=== PATIENT | female | born 1950 | race Caucasian/White ===

== ENCOUNTER 2016-06-21 11:52 | Emergency (ER) | payer OTHER ==
--- NOTE | 2016-06-21 13:48 | UC ---
Upper Extremity HPI - HPI Summary HPI Summary: complaint of right arm pain in forearm that started approx 2 weeks ago after falling up 1 step onto her forearm pain is aching and not improving worse with lifting or pulling feels like there is a pinching in her arm difficult sleep due to pain not taking any medication for pain at this time - History of Current Complaint Chief Complaint: UCUpperExtremity Stated Complaint: ARM INJURY Time Seen by Provider: 06/21/16 13:42 Hx Obtained From: Patient Hx Last Menstrual Period: NA - Allergies/Home Medications Allergies/Adverse Reactions: Allergies Allergy/AdvReac Type Severity Reaction Status Date / Time Doxycycline Allergy Intermediate Rash Verified 07/09/14 07:56 Home Medications: Home Medications NK [No Home Medications Reported] 06/21/16 [History Confirmed 06/21/16] PMH/Surg Hx/FS Hx/Imm Hx Previously Healthy: Yes Endocrine History Of: Denies: Diabetes Cardiovascular History Of: Denies: Hypertension, Myocardial Infarction Respiratory History Of: Reports: COPD - FREQUENT PNEUMONIA Denies: Asthma GI/ History Of: Reports: Kidney Stones, Renal Disease - kidney stones Cancer History Of: Denies: Breast Cancer - Surgical History Surgical History: Yes Surgery Procedure, Year, and Place: Kidney stone lithotripsy (date unknown) - Social History Occupation: Employed Full-time Lives: With Family Alcohol Use: Occasionally Substance Use Type: None Smoking Status (MU): Former Smoker Type: Cigarettes Amount Used/How Often: 2ppd Length of Time of Smoking/Using Tobacco: ~40yrs - Immunization History Most Recent Influenza Vaccination: Not current Most Recent Tetanus Shot: Unknown Most Recent Pneumonia Vaccination: 2010 Review of Systems Constitutional: Negative Skin: Negative Eyes: Negative ENT: Negative Respiratory: Negative Cardiovascular: Negative Gastrointestinal: Negative Genitourinary: Negative Motor: Negative Neurovascular: Negative Musculoskeletal: Other: - right arm pain Neurological: Negative Psychological: Negative All Other Systems Reviewed And Are Negative: Yes Physical Exam Triage Information Reviewed: Yes Appearance: No Pain Distress, Well-Nourished Vital Signs: Initial Vital Signs Temp 98.3 F 06/21/16 12:30 Pulse 83 06/21/16 12:30 Resp 16 06/21/16 12:30 BP 121/59 06/21/16 12:30 Pulse Ox 100 06/21/16 12:30 Vital Signs Reviewed: Yes Eyes: Positive: Conjunctiva Clear ENT: Positive: Pharynx normal, TMs normal. Negative: Nasal congestion Neck: Positive: No Lymphadenopathy Respiratory: Positive: Lungs clear, Normal breath sounds, No respiratory distress Cardiovascular: Positive: RRR, No Murmur, Pulses Normal Abdomen Description: Positive: Nontender, Soft Bowel Sounds: Positive: Present Musculoskeletal: Positive: Other: - No bony deformities, inflammation, or tenderness in olecranon, medial, lateral epicondyle elbow. tenderness over ulna , Full ROM upon flexion and extension. Neurological Exam: Normal Psychological Exam: Normal Skin Exam: Normal Upper Extremity Course/Dx - Differential Dx/Diagnosis Differential Diagnosis/HQI/PQRI: Contusion, Fracture (Closed) Provider Diagnoses: right arm contusion Discharge - Discharge Plan Condition: Stable Disposition: HOME Patient Education Materials: Contusion in Adults (ED), RICE Therapy (ED) Referrals: Arlene Forman MD [Primary Care Provider] - Additional Instructions: Increase fluids and rest Take acetaminophen or ibuprofen for fever or pain Please review your discharge instructions. If your symptoms do not improve please call your primary care provider or return to urgent care.
--- NOTE | 2016-06-21 14:17 | RAD ---
INDICATION: Right forearm injury COMPARISON: None TECHNIQUE: AP, lateral, and oblique views were obtained. FINDINGS: There is no acute fracture. 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 The soft tissues are intact. IMPRESSION: NO ACUTE FRACTURE.
[2016-06-21 14:32] VITALS: BP 126/59
== END 2016-06-21 14:37 | disposition home or self-care (01) ==
LOC: UCEAST 11:52
DX: S50.11XA Contusion of right forearm, initial encounter (principal); W10.2XXA Fall (on)(from) incline, initial encounter; Y93.9 Activity, unspecified; Y92.9 Unspecified place or not applicable; J44.9 Chronic obstructive pulmonary disease, unspecified; Z88.1 Allergy status to other antibiotic agents; Z87.891 Personal history of nicotine dependence
CPT/HCPCS: 99212; G0463

== ENCOUNTER 2019-02-21 04:13 | Emergency (ER) | payer MEDICARE, BC ==
--- OUTSIDE RECORDS SUMMARY | 2019-02-21 04:24 | XMS REPORT | Continuity of Care Document ---
:1950 External Reference #:[id number] Author Name EDDA Colón Address [address] [id number] Care Team Providers Name Role Phone Arlene Forman - Family Medicine Care Team Information Clerical Assigner [phone] Problems Active Problems Provider Date Bacterial pneumonia Neo Rice M.D. Onset: 09/04/2012 Pure hyperglyceridemia Brigitte Riley M.D. Onset: 08/17/2011 FH: Cardiovascular disease Brigitte Riley M.D. Onset: 07/27/2011 Malaise and fatigue Brigitte Riley M.D. Onset: 07/27/2011 Social History Type Date Description Comments Sex Unknown Tobacco Use Start: Unknown End: Former Cigarette Smoker 2 ppd, quit about Unknown 1999 ETOH Use Some average 3 drinks/week Recreational Drug Use Denies Drug Use Tobacco Use Start: Unknown End: Patient is a former Unknown smoker Smoking Status Reviewed: 08/02/17 Patient is a former smoker Allergies, Adverse Reactions, Alerts Active Allergies Reaction Severity Comments Date Doxycycline 07/03/2000 Medications Active Medications SIG Qnty Indications Ordering Date Provider Vagifem at the start of 25tabs Z01.419 Arlene Durand 05/19/2017 10mcg Tablets therapy insert 1 Stacy Forman tablet vaginally daily for 2 weeks, then 1 to 2 times weekly thereafter Vitamin D3 1 by mouth every 4caps E55.9 Arlene Durand 05/19/2017 54429Yinn week x 4 wks Stacy Forman Capsules Alprazolam 1-2 tabs by mouth 30tabs Arlene Durand 09/09/2014 0.25mg twice a day as Stacy Forman Tablets needed anxiety Medications Administered in Office Medication SIG Qnty Indications Ordering Provider Date TB Intradermal Test Nurse, Nurse 01/08/1999 Injection TB Intradermal Test Joshua Salazar M.D. 11/25/1996 Injection Immunizations CPT Code Status Date Vaccine Lot # [id number] Given 01/17/2003 Td Immunization, For Use In Individuals 7 Years Or Older [id number] Given 01/17/2003 Td Immunization, For Use In Individuals 7 Years Or Older Vital Signs Date Vital Result Comment 01/16/2019 3:23pm BP Systolic 122 mmHg BP Diastolic 70 mmHg Heart Rate 76 /min Body Temperature 97.9 F Respiratory Rate 20 /min Weight 156.00 lb 08/21/2018 4:03pm BP Systolic 110 mmHg BP Diastolic 66 mmHg Heart Rate 74 /min Body Temperature 98.5 F Respiratory Rate 17 /min Height 63 inches 5'3" Weight 160.00 lb BMI (Body Mass Index) 28.3 kg/m2 Results Description No Information Available Procedures Date Code Description Status 09/06/2017 59880269 Mammogram Completed 04/12/2017 [id number] Mammogram Completed 04/11/2016 [id number] Mammogram Completed 08/29/2014 [id number] Colonoscopy Completed 05/18/2007 [id number] Mammogram Completed Medical Devices Description No Information Available Encounters Type Date Location Provider Dx Diagnosis Office Visit 08/21/2018 Main Office Yvrose Colón.674 Pain in right 3:45p [employer] toe(s) R60.0 Localized edema Assessments Date Code Description Provider 01/16/2019 S70.361A Insect bite (nonvenomous), right thigh, EDDA Colón initial encounter 08/21/2018 M79.674 Pain in right toe(s) EDDA Colón 08/21/2018 R60.0 Localized edema EDDA Colón Plan of Treatment 01/16/2019 - REDD Colón70.361A Insect bite (nonvenomous), right thigh, initial encounterComments:At this time appropriate healing noted.Strong recommendation to leave the area alone other then daily warm compresses. If any part of the tick remains your body will naturally extrude it in approximately one week. There is no benefit to performing an incision which would likely increase your risk of complication from this bite. Follow-up PRN worsening symptoms at the site, failure to improve as expected or if you start to feel sick in the next 3-5 weeks.AllComments:Medication Management Patient Understands medications he 's taking? Yes No Are there Barriers to Adherence? Yes No Has the patient been asked about herbal supplements and therapies, andOTC meds? Yes No As always, we strongly encourage a healthy diet and making physical activity a part of your every day life. If you have questions about how or where to start, please contact the office. Functional Status Description No Information Available Mental Status Description No Information Available Referrals Description No Information Available
[2019-02-21] MEDS ORDERED: Ibuprofen TAB* 600 MG PO ONE (05:52)
--- NOTE | 2019-02-21 05:53 | ED ---
HPI Febrile Illness - HPI Summary HPI Summary: Patient is a 68-year-old female who presents emergency department for ongoing fever 3 days. Patient states her temperature at home has been up to 103F. Patient notes that she was symptoms of mild cough, low back pain and fatigue. Patient denies significant past medical history. She does note that she was bit by a tick about 2 months ago and had a diffuse rash which has resolved. Patient notes she was also treated for UTI last week with Augmentin. She otherwise denies chest pain, shortness of breath, abdominal pain, vomiting, diarrhea. Symptoms are [id number] in severity. No current modifying factors. - History of Current Complaint Chief Complaint: EDFever Time Seen by Provider: 02/21/19 05:37 Hx Obtained From: Patient Hx Last Menstrual Period: NA Pain Intensity: 4 - Allergy/Home Medications Allergies/Adverse Reactions: Allergies Allergy/AdvReac Type Severity Reaction Status Date / Time doxycycline Allergy Mild Hives Verified 02/21/19 04:19 PMH/Surg Hx/FS Hx/Imm Hx Previously Healthy: Yes Endocrine/Hematology History: Denies: Hx Diabetes Cardiovascular History: Reports: Hx Angina Denies: Hx Coronary Artery Disease, Hx Hypercholesterolemia, Hx Hypertension , Hx Myocardial Infarction, Hx Pacemaker/ICD, Hx Valvular Heart Disease Respiratory History: Reports: Hx Chronic Obstructive Pulmonary Disease (COPD) - FREQUENT PNEUMONIA, Other Respiratory Problems/Disorders - PNEUMONA X 3 Denies: Hx Asthma History: Reports: Hx Kidney Stones Denies: Hx Dialysis, Hx Renal Disease - kidney stones Musculoskeletal History: Reports: Other Musculoskeletal History - BACK DISC HERNIATED Sensory History: Reports: Hx Contacts or Glasses Denies: Hx Hearing Aid Opthamlomology History: Reports: Hx Contacts or Glasses Psychiatric History: Denies: Hx Panic Disorder - Cancer History Hx Chemotherapy: No Hx Radiation Therapy: No - Surgical History Surgery Procedure, Year, and Place: Kidney stone lithotripsy Hx Anesthesia Reactions: No - Immunization History Date of Tetanus Vaccine: UTD Date of Influenza Vaccine: PT UNSURE Infectious Disease History: No Infectious Disease History: Denies: Traveled Outside the [place] in Last 30 Days - Family History Known Family History: Positive: Non-Contributory - Social History Occupation: Retired Lives: With Family Alcohol Use: Occasionally Substance Use Type: Reports: None Smoking Status (MU): Former Smoker Type: Cigarettes Amount Used/How Often: 2ppd Length of Time of Smoking/Using Tobacco: ~40yrs Review of Systems Positive: Fever, Chills ENT: Negative Cardiovascular: Negative Negative: Palpitations, Chest Pain Positive: Cough. Negative: Shortness Of Breath Gastrointestinal: Negative Negative: Abdominal Pain, Vomiting, Diarrhea, Nausea Genitourinary: Negative Negative: dysuria Positive: Other - low back pain Skin: Negative Neurological: Negative All Other Systems Reviewed And Are Negative: Yes Physical Exam Triage Information Reviewed: Yes Vital Signs On Initial Exam: Initial Vitals Temp Pulse Resp BP Pulse Ox 99.1 F 108 16 116/63 95 02/21/19 04:15 02/21/19 04:15 02/21/19 04:15 02/21/19 04:15 02/21/19 04:15 Vital Signs Reviewed: Yes Appearance: Positive: Well-Appearing - Pt. lying in bed in NAD. present. Skin: Positive: Warm, Dry Head/Face: Positive: Normal Head/Face Inspection Eyes: Positive: Normal, EOMI, PAVAN ENT: Positive: Pharyngeal erythema, TMs normal Neck: Positive: Supple, Nontender. Negative: Nuchal Rigidity Respiratory/Lung Sounds: Positive: Clear to Auscultation, Breath Sounds Present Cardiovascular: Positive: Normal, RRR Abdomen Description: Positive: Nontender, Soft, Other: - Minimal CVA tenderness bilaterally. Musculoskeletal: Positive: Normal, Strength/ROM Intact Neurological: Positive: Normal, CN Intact II-III Psychiatric: Positive: Affect/Mood Appropriate Procedures - Sedation Patient Received Moderate/Deep Sedation with Procedure: No Diagnostics - Vital Signs Vital Signs Temp Pulse Resp BP Pulse Ox 02/21/19 05:00 102 94 02/21/19 04:37 104 112/70 95 02/21/19 04:35 104 95 02/21/19 04:15 99.1 F 108 16 116/63 95 - Laboratory Result Diagrams: 02/21/19 06:24 02/21/19 06:24 Lab Statement: Any lab studies that have been ordered have been reviewed, and results considered in the medical decision making process. Course/Dx - Course Course Of Treatment: Patient with ongoing fever 3 days. She is a complaints of cough and lower back pain. Benign exam. Low-grade fever and mildly tachycardic. Patient given a dose of Motrin. Chest x-ray negative for infiltrate per my reading. Labs showed mild leukocytosis. Urinalysis is nitrite positive with bacteria and leukocytes. Negative influenza. Suspect UTI the source of infection. Patient was recently treated with Augmentin without improvement. Will place on ciprofloxacin for complicated UTI and possible early pyelo given mild bilateral flank pain. Patient will follow-up with PCP on Monday. Increase fluids and rest. Tylenol or Motrin for pain as directed. We'll return to the ER symptoms change or worsen. Patient understands and agrees with plan. - Febrile Illness Differential Diagnoses: Bacteremia, Meningitis, Pneumonia, Pyelonephritis, Sepsis - Diagnoses Provider Diagnoses: UTI (urinary tract infection) Discharge ED - Sign-Out/Discharge Documenting (check all that apply): Patient Departure - Discharge Plan Condition: Improved Disposition: HOME Prescriptions: Ciprofloxacin TAB* [Cipro 500 MG TAB*] 500 mg PO BID #20 tab Patient Education Materials: Urinary Tract Infection in Women (ED) Referrals: Arlene Forman MD [Primary Care Provider] - Additional Instructions: Schedule follow up appointment with PCP for Monday Take antibiotic as directed Tylenol or Motrin for pain and fever as directed Increase fluids and rest Return to ER if symptoms change or worsen - Billing Disposition and Condition Condition: IMPROVED Disposition: Home - Attestation Statements Provider Attestation: pt seen by midlevel provider independently, based on their assessment, it was not necessary to present the case to me but I was available for consultation. I did not form a physician-patient relationship with the patient. The chart however, has been reviewed. am signing this note strictly in an administrative capacity.
[2019-02-21 06:34] LABS: Urine Appearance Clear; Urine Bilirubin Negative (Negative); Urine Blood 2+ (Negative); Urine Color Yellow; Urine Glucose Negative (Negative); Urine Ketones Negative (Negative); Urine Nitrite Positive (Negative); Urine Protein Negative (Negative); Urine Specific Gravity 1.012 (1.010-1.030); Urine Urobilinogen Negative (Negative)
[2019-02-21 06:37] LABS: Urine Bacteria 1+ (Absent); Urine Red Blood Cell 2+(6-10/hpf) (Absent); Urine White Blood Cell 3+(>20/hpf) (Absent)
[2019-02-21 06:39] LABS: ABS Lymphocytes 0.7 10^3/ul (1.0-4.8); ABS Monocytes 1.1 10^3/ul (0-0.8); ABS Neutrophils 9.5 10^3/ul (1.5-7.7); Hematocrit 36 % (35-47); Hemoglobin 12.3 g/dL (12.0-16.0); Lymphocyte % 6.2 %; Mean Corpuscular HGB Conc 34 g/dL (31-36); Mean Corpuscular Hemoglobin 30 pg (27-31); Mean Corpuscular Volume 89 fL (80-97); Mean Platelet Volume 8.9 fL (7.4-10.4); Platelet Count 231 10^3/uL (150-450); Red Blood Count 4.05 10^6 /uL (3.70-4.87); Red Cell Distribution Width 13 % (10-15); White Blood Count 11.4 10^3/uL (3.5-10.8)
[2019-02-21 06:45] LABS: Influenza A Molecular NEGATIVE (Negative); Influenza B Molecular NEGATIVE (Negative)
[2019-02-21 06:54] LABS: Albumin/Globulin Ratio 1.7 (1-3); BUN/Creatinine Ratio 23.4 (8-20); C Reactive Protein 26.18 mg/L (<8.01); Calcium 9.4 mg/dL (8.6-10.3); EGFR African American 112.3 (>60); EGFR Non-African American 92.8 (>60); Globulin 2.3 g/dL (2-4); Potassium 3.9 mmol/L (3.5-5.0); Total Bilirubin 1.1 mg/dL (0.2-1.0); Total Protein 6.3 g/dL (6.4-8.9)
[2019-02-21] MEDS ORDERED: Ciprofloxacin TAB* 500 MG PO ONE (07:25)
[2019-02-21 08:11] VITALS: BP 100/58
[2019-02-22 22:17] LABS: B garinii/B afzelii PCR Negative (Negative); B mayonii PCR Negative (Negative)
--- NOTE | 2019-02-24 05:51 | ED ---
Imaging and Labs Follow Up Follow Up Type: Labs/Cultures Labs/Culture Result: urine culture final grew e coli 100,000 Patient Communication/Plan: Patient was placed on ciprofloxacin prior to discharge Patient Communication/Plan: This is sensitive to organism Provider Diagnoses: UTI (urinary tract infection)
== END 2019-02-21 08:05 | disposition home or self-care (01) ==
LOC: ED 04:13
DX: N39.0 Urinary tract infection, site not specified (principal); J44.9 Chronic obstructive pulmonary disease, unspecified; Z87.891 Personal history of nicotine dependence; Z87.442 Personal history of urinary calculi; Z88.1 Allergy status to other antibiotic agents
CPT/HCPCS: 36415; 71046; 80053; 81003; 81015; 85025; 86140; 87077; 87086; 87186; 87476; 87798; 99283; A9270-GY

== ENCOUNTER 2023-03-17 09:13 | Observation (INO) ==
[2023-03-17 10:47] LABS: Urine Appearance Turbid; Urine Bilirubin Negative (Negative); Urine Blood Negative (Negative); Urine Color Amber; Urine Glucose Negative (Negative); Urine Ketones Trace (Negative); Urine Nitrite Positive (Negative); Urine Protein 2+(100 mg/dL) (Negative); Urine Specific Gravity 1.019 (1.002-1.030); Urine Urobilinogen Negative (Negative)
[2023-03-17 11:01] LABS: Urine Bacteria 2+ (Absent); Urine Red Blood Cell 3+(>10/hpf) (Absent); Urine White Blood Cell 3+(>20/hpf) (Absent)
[2023-03-17 11:03] LABS: Albumin 4.4 g/dL (3.2-5.2); Albumin/Globulin Ratio 1.6 (1-3); Calcium 9.8 mg/dL (8.6-10.3); Creatinine, Serum 0.71 mg/dL (0.51-0.95); Globulin 2.7 g/dL (2-4); Potassium 4.2 mmol/L (3.5-5.0); Total Bilirubin 0.9 mg/dL (0.2-1.0); Total Protein 7.1 g/dL (6.4-8.9); eGFR CKD-EPI 91.4 (>60)
[2023-03-17] MEDS ORDERED: Lactated Ringers 1000 ml BAG 1,000 ML IV ONE ×2 (11:27→16:48)
[2023-03-17] MEDS ORDERED: cefTRIAXone 2 gm/50 mL D5W 2 GM/50 ML BAG IV ONE (11:27)
[2023-03-17] MEDS ORDERED: Famotidine IV 10 MG/ML 2 ml VIAL (20 mg) IV ONE (12:24)
[2023-03-17] MEDS ORDERED: Buffered Lidocaine 1% SYRIN 1 ml INTRADERM ONE (12:24)
[2023-03-17] MEDS ORDERED: fentaNYL 100 mcg/2 ml 50 MCG/ML VIAL IV PRN (12:25)
[2023-03-17] MEDS ORDERED: Naloxone 0.4 mg VIAL 0.4 mg/ml 1 ml VIAL IV PRN (12:25)
[2023-03-17] MEDS ORDERED: Ondansetron 4 mg VIAL 2 MG/ML 2 ml VIAL IV PRN (12:25)
[2023-03-17] MEDS ORDERED: Lactated Ringers 1000 ml BAG 1,000 ML IV SCH (13:00)
[2023-03-17] MEDS ORDERED: Iohexol 180 (CONTRAST) 10 ML SDV IV ONE (13:16)
[2023-03-17] MEDS ORDERED: Midazolam 2 mg/2 ml VIAL 1 mg/ml 2 ml VIAL (2 mg) ONE (13:38)
[2023-03-17] MEDS ORDERED: fentaNYL 100 mcg/2 ml 50 MCG/ML VIAL ONE (13:38)
[2023-03-17] MEDS ORDERED: Lidocaine 2% PF 5 ML VIAL ONE (13:48)
[2023-03-17] MEDS ORDERED: Propofol 10 MG/ML 20 ML BTL ONE (13:48)
[2023-03-17] MEDS ORDERED: Dexamethasone IV 4 MG/ML VIAL 1 ml VIAL ONE (13:50)
[2023-03-17] MEDS ORDERED: Ondansetron 4 mg VIAL 2 MG/ML 2 ml VIAL ONE (13:50)
[2023-03-17 14:14] LABS: ABS Lymphocytes 1.3 10^3/uL (1.0-4.8); ABS Monocytes 0.7 10^3/uL (0.0-0.9); ABS Neutrophils 6.1 10^3/uL (1.5-7.6); ABS Nucleated RBC 0.01 10^3/ul; Eosinophil % 0.3 %; Hemoglobin 13.9 g/dL (11.5-14.3); Lymphocyte % 15.9 %; Mean Corpuscular Hgb Conc 33.9 g/dL (31-36); Mean Corpuscular Volume 91.4 fL (80-97); Mean Platelet Volume 9.7 fL (7.5-11.2); Nucleated Red Blood Cells % 0.1 %/100WBC (0.0-0.8); Platelet Count 294 10^3/uL (150-450); Red Blood Count 4.48 10^6/uL (3.63-4.92); Red Cell Distribution Width 12.2 % (12-17); White Blood Count 8.2 10^3/uL (3.8-11.8)
[2023-03-17] MEDS ORDERED: Piperacillin/Tazobac 3.375 BAG 3.375 GM/100 ML BAG IV ONE (17:00)
[2023-03-17] MEDS ORDERED: Zosyn per Pharmacy NOTE FOLLOW UP SCH (17:00)
[2023-03-17] MEDS ORDERED: NS 0.9% 1000 ml BAG 400 ML IV ONE (17:15)
[2023-03-17] MEDS: ZOSYN 3.375 GM Q8H per EXTENDED INFUSION IV SCH (20:37)
[2023-03-18] MEDS: ZOSYN 3.375 GM Q8H per EXTENDED INFUSION IV SCH ×3 (04:24→22:28)
[2023-03-18 05:58] LABS: Hematocrit 37.2 % (35-45); Hemoglobin 12.4 g/dL (11.5-14.3); Mean Corpuscular Hemoglobin 30.4 pg (27-33); Mean Corpuscular Hgb Conc 33.4 g/dL (31-36); Mean Corpuscular Volume 91.2 fL (80-97); Mean Platelet Volume 8.9 fL (7.5-11.2); Platelet Count 265 10^3/uL (150-450); Red Blood Count 4.08 10^6/uL (3.63-4.92); Red Cell Distribution Width 12.4 % (12-17); White Blood Count 20.8 10^3/uL (3.8-11.8)
[2023-03-18] MEDS ORDERED: cefTRIAXone 1 gm/50 mL D5W 1 GM/50 ML BAG IV SCH (06:00)
[2023-03-18 06:13] LABS: Calcium 9.2 mg/dL (8.6-10.3); Creatinine, Serum 0.72 mg/dL (0.51-0.95); Potassium 4.4 mmol/L (3.5-5.0); eGFR CKD-EPI 89.9 (>60)
[2023-03-18 12:34] LABS: ABS Lymphocytes 0.9 10^3/uL (1.0-4.8); ABS Nucleated RBC 0.01 10^3/ul; Eosinophil % 0.1 %; Hematocrit 35.2 % (35-45); Hemoglobin 11.7 g/dL (11.5-14.3); Lymphocyte % 4.7 %; Mean Corpuscular Hgb Conc 33.1 g/dL (31-36); Mean Corpuscular Volume 90.7 fL (80-97); Mean Platelet Volume 9.5 fL (7.5-11.2); Platelet Count 226 10^3/uL (150-450); Red Blood Count 3.88 10^6/uL (3.63-4.92); Red Cell Distribution Width 12.5 % (12-17); White Blood Count 18.9 10^3/uL (3.8-11.8)
[2023-03-19] MEDS: ZOSYN 3.375 GM Q8H per EXTENDED INFUSION IV SCH ×2 (05:00→13:35)
[2023-03-19 08:23] LABS: ABS Eosinophils 0.1 10^3/uL (0.0-0.5); ABS Lymphocytes 1.3 10^3/uL (1.0-4.8); ABS Monocytes 0.8 10^3/uL (0.0-0.9); ABS Neutrophils 8.6 10^3/uL (1.5-7.6); ABS Nucleated RBC 0.01 10^3/ul; Hematocrit 35.2 % (35-45); Hemoglobin 11.9 g/dL (11.5-14.3); Mean Corpuscular Hemoglobin 30.7 pg (27-33); Mean Corpuscular Hgb Conc 33.8 g/dL (31-36); Mean Platelet Volume 9.4 fL (7.5-11.2); Platelet Count 226 10^3/uL (150-450); Red Blood Count 3.86 10^6/uL (3.63-4.92); Red Cell Distribution Width 12.5 % (12-17); White Blood Count 10.9 10^3/uL (3.8-11.8)
[2023-03-19 14:26] VITALS: BP 108/57
== END 2023-03-19 15:30 | disposition home or self-care (01) ==
LOC: ED 09:13 → SDS 12:41 → OR 13:42 → SSU 13:42
PROVIDERS: ADMIT Student in an Organized Health Care Education/Training Program; ATTEND Internal Medicine